=== PATIENT | female | born 1945 | race Caucasian/White ===

== ENCOUNTER 2017-12-25 11:56 | Inpatient (IN) | payer OTHER ==
[~2017-12-25] VITALS: Ht 157.5 cm; Wt 43.5 kg
--- NOTE | ~2017-12-25 | HC ---
[facility] [place] [address] CONSULTATION Name: CARMELITA ANDERSON Ag Room #: 448-P [facility] IN ..#: [id number] Admission: 12/25/17 Attend Phys: Rajiv Blakely MD Discharge: 12/28/17 Date of : 47 Report #: [id number] THIS REPORT FOR: //name// CC: FAM unknown Rajiv Blakely DATE OF SERVICE: 12/25/2017 REASON FOR CONSULTATION: Painful area of left lower leg. HISTORY OF PRESENT ILLNESS: The patient is an unfortunate 72-year-old woman suffering from metastatic lung cancer with brain metastases who is currently undergoing chemotherapy. She has required blood transfusion. She is known to be immunocompromised. Most recent hemogram showed white blood count of 3.9, platelet count of 63. The patient has noticed a painful, tender area with some redness of her left lateral lower leg. There may have been some slight drainage from this. The patient was complaining of pain, has not been walking on it. She is admitted to the hospital, wound care was consulted for evaluation of wound of her left lower leg. Medical problems include metastatic lung cancer, acute kidney injury, pancytopenia due to chemotherapy immunocompromised, malnutrition. ALLERGIES: CODEINE. MEDICATIONS: Include Lomotil, Nexium, folic acid, Neurontin, Advil, Remeron, Zofran, Percocet, Compazine. PAST SURGICAL HISTORY: Cholecystectomy, excision of breast cyst, cervical disk surgery, radiation to hips and head from lung cancer metastases, tonsillectomy and adenoidectomy. SOCIAL HISTORY: Former smoker for 50 years. No smoking now. PHYSICAL EXAMINATION: GENERAL: Shows an alert, pleasant, conversant, chronically ill-appearing, thin, malnourished-appearing elderly woman who is pleasant and conversant. HEENT: Mucous membranes are moist. NECK: Supple. LUNGS: Respirations are unlabored. ABDOMEN: Soft. EXTREMITIES: Shows a 2.5 cm area of the left lower lateral leg with a purplish discoloration, slightly raised, slightly tender without erythema. There is no drainage and no open skin wound. Palpation shows slightly raised area to be relatively soft, only mildly indurated. Clinically exam is most consistent with a contusion of the left lower leg with subcutaneous hematoma with pain from some pressure of the hematoma under the skin. [address] [address] CONSULTATION Name: CARMELITA ANDERSON Room #: 448-P [facility]#: [id number] Admission: 12/25/17 Attend Phys: Rajiv Blakely MD Discharge: 12/28/17 Date of : 47 Report #: [id number] IMPRESSION: 1. Metastatic lung cancer, currently undergoing chemotherapy. 2. Brain metastases from lung cancer. 3. Pancytopenia secondary to chemotherapy. 4. Clinical contusion with hematoma, left lower leg which seems to be stable. It does not seem to be cellulitic or infected. Antibiotics may not be necessary. Based on the clinical appearance and findings on palpation of the lesion, I do not believe that incision and drainage or opening of the wound would be necessary or advisable. Would expect spontaneous resolution as the hematoma is absorbed. The patient may have had minor trauma leading to hematoma due to her thrombocytopenia, would protect this area with a Mepilex or foam pad, keep legs elevated, simply observe it. Wound care team will follow. <ELECTRONICALLY SIGNED> By: Rodney Miller MD 12/29/17 1204 1247 1728 Rodney Miller MD /nt
--- NOTE | ~2017-12-25 | HC ---
[facility] [place] [address] CONSULTATION Name: CARMELITA ANDERSON Ag Room #: 448-P [facility]..#: [id number] Admission: 12/25/17 Attend Phys: Rajiv Blakely MD Discharge: 12/28/17 Date of : 47 Report #: [id number] THIS REPORT FOR: //name// CC: FAM unknown Rajiv Blakely DATE OF SERVICE: 12/27/2017 REASON FOR CONSULTATION: Pancytopenia, lung cancer. REQUESTING PHYSICIAN: Dr. Blakely. HISTORY OF PRESENT ILLNESS: The patient is a pleasant 72-year-old woman well known to my partner, Dr. Raines. She is undergoing chemotherapy for stage IV lung cancer. She is receiving chemotherapy with carboplatin and Taxol. She states she received 6 cycles of chemotherapy. Last cycle of chemotherapy was 3 weeks ago. She discontinued chemotherapy because of stable disease and increasing toxicity. She is admitted to the hospital now with cellulitis on her right lower extremity. She has pancytopenia, persistent anemia. Hematology/oncology consult is requested. She has complaints of weakness, shortness of breath on exertion. Does not have fever or chills. PAST MEDICAL HISTORY: Significant for metastatic stage IV non-small cell lung cancer, history of anemia, transfusions in the past, cellulitis. SOCIAL HISTORY: Former smoker. PHYSICAL EXAMINATION: GENERAL: Reveals thin elderly woman, not in acute distress. VITAL SIGNS: Blood pressure 134/75, heart rate is 64, temperature 97.2, respirations 20. HEENT: Does not reveal thrush. HEART: Normal S1, S2. LUNGS: Clear. ABDOMEN: Soft. No organomegaly. LOWER EXTREMITIES: No edema. Left lower extremity exam reveals bandage over the wound. No significant erythema. LABORATORY DATA: White count 4.0, hemoglobin 6.7, platelets 63, absolute neutrophil count 3.4. ASSESSMENT AND PLAN: 1. Non-small cell lung cancer. Last chemotherapy was 3 weeks ago. She completed chemotherapy for now as per the patient. 2. Anemia secondary to chemotherapy. She has required transfusions in the past. She is quite symptomatic. Because of her underlying disease and [facility] [address] [place] [address] CONSULTATION Name: CARMELITA ANDERSON Ag Room #: 448-P [facility]#: [id number] Admission: 12/25/17 Attend Phys: Rajiv Blakely MD Discharge: 12/28/17 Date of : 47 Report #: [id number] chemotherapy, she will require transfusion. I am planning to order 2 units of packed red blood cells. 3. Thrombocytopenia secondary to chemotherapy. Continue to monitor. No transfusion is needed. Thank you very much for allowing me to participate in the care of this patient. We will continue to follow the patient while the patient is in the hospital. <ELECTRONICALLY SIGNED> By: Jared Bean MD 01/04/18 1606 1023 2309 Jared Bean MD /terrence
[~2017-12-25 11:56] MED LIST: COMPAZINE10 MG PO; FLEXERIL PO; FOLIC ACID1 MG PO; GABAPENTIN 100100 MG PO; IBUPROFEN 200200 M1 PO; LOMOTIL TABLET1 EACH PO; NEURONTIN600 MG PO; NEXIUM40 MG PO; ONDANSETRON HCL4 M2 PO; PERCOCET PO; REMERON15 MG PO; TRAMADOL 50 MG50 MG PO; VITAMIN D PO
[2017-12-25 13:25] LABS: HEMATOCRIT 21.1 % (37.0-47.0); HEMOGLOBIN 7.3 gm/dL (12.0-15.0); MCH 29.7 pg (26.0-34.0); MCHC 34.6 g/dL (28.0-37.0); MCV 85.9 fL (80.0-100.0); RBC 2.46 mil/uL (4.20-5.00); RDW 20.2 % (10.5-14.5); WBC 3.9 thou/uL (4.0-11.0)
[2017-12-25 13:32] VITALS: BP 124/72
[2017-12-25 13:33] LABS: CALCIUM 7.4 mg/dL (8.5-10.1); CREATININE 1.8 mg/dL (0.6-1.0); POTASSIUM 3.1 mmol/L (3.5-5.1)
[2017-12-25 13:58] LABS: ABSOLUTE NEUTROPHILS 2.9 thou/uL (1.4-8.2); ANISOCYTOSIS 1+; PLATELET COUNT 70 thou/uL (150-400)
[2017-12-25 14:57] VITALS: BP 124/72
[2017-12-25 16:13] VITALS: BP 151/75
[2017-12-25 22:33] VITALS: BP 115/67
[2017-12-26 04:31] LABS: HEMOGLOBIN 6.5 gm/dL (12.0-15.0); MCH 30.6 pg (26.0-34.0); MCHC 35.5 g/dL (28.0-37.0); MCV 86.1 fL (80.0-100.0); RBC 2.14 mil/uL (4.20-5.00); RDW 20.3 % (10.5-14.5); WBC 3.9 thou/uL (4.0-11.0)
[2017-12-26 04:40] LABS: CALCIUM 7.1 mg/dL (8.5-10.1); CREATININE 1.7 mg/dL (0.6-1.0); POTASSIUM 3.5 mmol/L (3.5-5.1)
[2017-12-26 04:48] LABS: HEMATOCRIT 18.4 % (37.0-47.0)
[2017-12-26 06:40] VITALS: BP 132/71
[2017-12-26 08:20] VITALS: BP 130/78
[2017-12-26 10:28] LABS: HEMATOCRIT 20.1 % (37.0-47.0); MCH 30.2 pg (26.0-34.0); MCHC 34.7 g/dL (28.0-37.0); MCV 86.8 fL (80.0-100.0); RBC 2.32 mil/uL (4.20-5.00); RDW 19.6 % (10.5-14.5); WBC 4.1 thou/uL (4.0-11.0)
[2017-12-26 16:42] VITALS: BP 145/72
[2017-12-26 20:11] VITALS: BP 146/71
[2017-12-27 04:31] VITALS: BP 127/72
[2017-12-27 06:18] LABS: RBC 2.19 mil/uL (4.20-5.00)
[2017-12-27 06:20] LABS: HEMOGLOBIN 6.7 gm/dL (12.0-15.0); MCH 30.4 pg (26.0-34.0); MCHC 35.2 g/dL (28.0-37.0); MCV 86.4 fL (80.0-100.0); PLATELET COUNT 63 thou/uL (150-400); RDW 20.1 % (10.5-14.5); WBC 4.2 thou/uL (4.0-11.0)
[2017-12-27 06:24] LABS: CALCIUM 7.5 mg/dL (8.5-10.1); CREATININE 1.7 mg/dL (0.6-1.0); MAGNESIUM 1.4 mg/dL (1.8-2.4); POTASSIUM 3.4 mmol/L (3.5-5.1)
[2017-12-27 06:27] LABS: HEMATOCRIT 18.9 % (37.0-47.0)
[2017-12-27 06:44] LABS: ABSOLUTE NEUTROPHILS 3.4 thou/uL (1.4-8.2); ANISOCYTOSIS 1+; POLYCHROMASIA OCCASIONAL
[2017-12-27 07:35] VITALS: BP 134/75
[2017-12-27 15:37] VITALS: BP 141/88; BP 148/91
[2017-12-27 18:12] VITALS: BP 148/91
[2017-12-27 19:00] VITALS: BP 141/88; BP 151/86; BP 158/100
[2017-12-27 21:18] VITALS: BP 164/92
[2017-12-28 04:11] VITALS: BP 159/81
[2017-12-28 07:17] LABS: ABSOLUTE NEUTROPHILS 4.8 thou/uL (1.4-8.2); BASOPHILS 0.7 % (0.0-2.0); EOSINOPHILS 1.4 % (0.0-3.0); HEMATOCRIT 31.2 % (37.0-47.0); LYMPHOCYTES 7.5 % (24.0-44.0); MCH 30.1 pg (26.0-34.0); MCHC 34.7 g/dL (28.0-37.0); MCV 86.7 fL (80.0-100.0); MONOCYTES 10.5 % (1.0-8.0); PLATELET COUNT 65 thou/uL (150-400); POLYS 79.9 % (36.0-66.0); RDW 17.5 % (10.5-14.5)
[2017-12-28 07:20] LABS: HEMOGLOBIN 10.8 gm/dL (12.0-15.0)
[2017-12-28 07:25] LABS: CALCIUM 7.8 mg/dL (8.5-10.1); CREATININE 1.8 mg/dL (0.6-1.0); MAGNESIUM 1.7 mg/dL (1.8-2.4); POTASSIUM 3.1 mmol/L (3.5-5.1)
[2017-12-28 08:00] VITALS: BP 166/75
[2017-12-28 09:45] VITALS: BP 166/75
[2017-12-28] MEDS ORDERED: AUGMENTIN 500-1 EACH PO (12:58)
[2017-12-28 13:26] VITALS: BP 166/75
[2017-12-28 16:00] VITALS: BP 147/77
== END 2017-12-28 18:24 | disposition home or self-care (01) | DRG 602 ==
LOC: ER 11:56 → 4S 14:22 → EROBS 14:22 → 4S 15:28 → ENTRNSPT 12-28 17:37 → 4S 12-28 18:24
PROVIDERS: Hospitalist; Internal Medicine; Nurse Practitioner Acute Care; Nurse Practitioner Family
PROC: 30233N1 Transfusion of Nonautologous Red Blood Cells into Peripheral Vein, Percutaneous Approach (ICD-10-PCS; principal; 2017-12-27)
DX: L03.115 Cellulitis of right lower limb (principal); E43 Unspecified severe protein-calorie malnutrition; D61.810 Antineoplastic chemotherapy induced pancytopenia; C34.90 Malignant neoplasm of unspecified part of unspecified bronchus or lung; C79.31 Secondary malignant neoplasm of brain; Z68.1 Body mass index [BMI] 19.9 or less, adult; G62.9 Polyneuropathy, unspecified; K21.9 Gastro-esophageal reflux disease without esophagitis; E87.6 Hypokalemia; L02.415 Cutaneous abscess of right lower limb; D64.81 Anemia due to antineoplastic chemotherapy; S80.12XA Contusion of left lower leg, initial encounter; E83.42 Hypomagnesemia; W18.39XA Other fall on same level, initial encounter; Z88.5 Allergy status to narcotic agent; Z90.49 Acquired absence of other specified parts of digestive tract; Z87.891 Personal history of nicotine dependence; Y93.89 Activity, other specified; Y92.098 Other place in other non-institutional residence as the place of occurrence of the external cause; Y99.8 Other external cause status
CPT/HCPCS: 10195

== ENCOUNTER 2018-01-10 11:53 | Inpatient (IN) | payer OTHER ==
[~2018-01-10] VITALS: Ht 167.6 cm; Wt 42.7 kg
--- NOTE | ~2018-01-10 | EKG ---
[place] [address] [address] [place] [address] ELECTROCARDIOGRAM REPORT Name: CARMELITA ANDERSON Room #: 214-P ADM IN M.R.#: [id number] Admission: 01/10/18 Attend Phys: Gabriel Worrell DO Discharge: Date of : 47 Report #: [id number] THIS REPORT FOR: //name// [facility] ED Test Date: 2018-01-10 Test Time: 12:14:33 Pat Name: CARMELITA ANDERSON Department: Room: 214 Gender: F Sales Intern: Ashleigh GRANDE : 1945 Requested By: Lizbet Guajardo Order Number: [id number] MD: Matthew Sullivan Measurements Intervals [place] Rate: 79 P: 80 IA: 142 QRS: 88 QRSD: 138 T: -1 QT: 463 QTc: 531 Interpretive Statements Sinus rhythm IVCD, consider atypical RBBB No previous ECG available for comparison Electronically Signed On 01-11-2018 7:37:05 RELATIONS LIAISON by Matthew Sullivan [email or web address] <ELECTRONICALLY SIGNED> By: Matthew Sullivan MD, [facility] 01/11/18 0737 1214 13 Matthew Sullivan MD, FACC /EPI
--- NOTE | ~2018-01-10 | HC ---
[facility] [place] [address] CONSULTATION Name: CARMELITA ANDERSON Ag Room #: 214-P [facility] IN M.R.#: [id number] Admission: 01/10/18 Attend Phys: Gabriel Worrell DO Discharge: 01/13/18 Date of : 47 Report #: [id number] THIS REPORT FOR: //name// CC: FAM unknown Gabriel Worrell DO REQUESTING PHYSICIAN: Gabriel Worrell DO. CHIEF COMPLAINT: Acute hypoxic respiratory failure. HISTORY OF PRESENT ILLNESS: The patient is a 72-year-old female with a history of metastatic lung cancer to bone and brain, who had recently been undergoing chemotherapy and had an evaluation at home for palliative care services. At that time of that evaluation, the nurse noted the patient to have vomitus and the patient had a likely aspiration episode. EMS was called. Suctioning was commenced. She was 79% on nonrebreather at that time. The patient was brought into the Emergency Department on 01/10/2018. BiPAP was initiated. The patient is a DNR at this point in time. Unfortunately, the patient appears to have a rather poor prognosis, has been evaluated by Dr. Washington, the patient's regional loss prevention manager since arrival. Additionally, the family had expressed interest in going to hospice house if the patient was able to be stabilized. The patient is currently nonresponsive to my questioning or to commands. The patient's family including and daughter are present at today's interview. PAST MEDICAL HISTORY: Significant for metastatic lung cancer, diagnosed 01/2017, history of breast cancer in remission, history of keratitis of unknown origin. SURGICAL HISTORY: Known history of cholecystectomy, bilateral cataracts, tonsillectomy, adenoidectomy. SOCIAL HISTORY: She has a past tobacco use history, but she has quit over 1 year prior, and daughter are present today with interview. She is currently DNR status. MEDICATIONS AT HOME: She was on Lomotil p.r.n., vitamin D 50,000 units weekly, Nexium 40 mg daily, folic acid 1 mg daily, gabapentin 600 mg at bedtime, mirtazapine 30 mg at bedtime and Zofran 8 mg p.r.n. ALLERGIES: CODEINE. FAMILY HISTORY: Noncontributory. REVIEW OF SYSTEMS: Unable to obtain due to medical condition. PHYSICAL EXAMINATION: Includes: [facility] [address] [place] [address] CONSULTATION Name: CARMELITA ANDERSON Room #: 214-P [facility] IN M.R.#: [id number] Admission: 01/10/18 Attend Phys: Gabriel Worrell DO Discharge: 01/13/18 Date of : 47 Report #: [id number] VITAL SIGNS: Today 36.6 temperature, pulse 59, respirations 18, blood pressure 153/83, 100% on mask currently. GENERAL: Appears to be in no acute distress. She is not responsive to questions. She does have some verbal response to touch stimuli; however, this is no sensible words at this time. HEENT: Appears to have flattened nasolabial folds. CARDIOVASCULAR: She is regular rate and rhythm without apparent murmur. LUNGS: Diffuse rales in bases. Upper lobes appear to have some clearing. ABDOMEN: She does not have any grimacing to apparent palpation of her abdomen, diminished bowel sounds are noted. No apparent distention. EXTREMITIES: No edema noted. LABORATORY DATA: Include hemoglobin 9.5, platelets 103, creatinine 1.5. She had previously been below on her potassium from 2.5, now she is at 3.1. ASSESSMENT AND PLAN: 1. Acute hypoxic respiratory failure. At this time, the patient is on face shield FiO2 50%. Discussed weaning oxygen down to nasal cannula as tolerated with family. Family is amenable to this. Discussed this would be in an effort to see if the patient will remain stable enough to discharge to hospice to the care facility or to pursue palliative care on an inpatient basis, which they are amenable to. They understand the patient's condition is poor and that she will either in the hospital setting or on a hospice setting without significant aggressive treatment or even with significant aggressive treatment. They are amenable to hospice and were prior to admission to the hospital, although this acute episode of aspiration prompted the admission. They are continuing the Do Not Resuscitate status. I did discuss other medications used such as morphine and Ativan for air hunger pain and anxiety. Also, discussed use of medications for secretions, although their effectiveness has not been significant and discussed that secretions are normal part of the dying process without significant distress to the patient. Did discuss this also with nurse outreach case manager and also with nursing staff and they left message with Dr. Washington with regards to my management plan at this time. If the patient is stabilized overnight with decreases in oxygen to regular nasal cannula, possibly could be discharged to hospice house tomorrow. 2. Metastatic lung cancer. Again at this time given her overall condition unlikely to have significant recovery, I had discussed this with the patient's family, they would already come to this decision independent of my discussion today. 3. Aspiration pneumonia. Again, this is likely the cause of her hypoxic respiratory failure, possibility of recurrence is high given her overall medical condition; however, I did discuss antibiotics at this time. We made a decision to reduce and remove antibiotics at this current point in time. 4. Acute kidney injury, again contributing to overall condition, although mild. At this point in time, we are stopping IV fluids at family request. 5. I will continue to follow with this patient. I spent approximately 35 [facility] [address] [place] [address] CONSULTATION Name: CARMELITA ANDERSON Room #: 214-P [facility] IN .R.#: [id number] Admission: 01/10/18 Attend Phys: Gabriel Worrell DO Discharge: 01/13/18 Date of : 47 Report #: [id number] minutes in advanced care planning discussion today with family, nurse outreach case manager and nursing staff. We will continue to follow. Thank you very much for the consultation. <ELECTRONICALLY SIGNED> By: River Castellano DO 02/12/18 1323 1316 1945 River Castellano DO /nt
[~2018-01-10 11:53] MED LIST changes: +AUGMENTIN 500-1 EACH PO
[2018-01-10 11:54] VITALS: BP 144/89
[2018-01-10 13:06] LABS: BE(vivo) -12.3 mmol/L (-2 to +3); HCO3 12.2 mmol/L (22.0-26.0); PO2 357.5 mmHg (80.0-100.0); pH 7.307 (7.360-7.450); sO2 99.7 % (92.0-98.0)
[2018-01-10 13:21] LABS: ABSOLUTE NEUTROPHILS 7.7 thou/uL (1.4-8.2); BASOPHILS 0.9 % (0.0-2.0); HEMATOCRIT 34.2 % (37.0-47.0); HEMOGLOBIN 11.8 gm/dL (12.0-15.0); LYMPHOCYTES 4.7 % (24.0-44.0); MCHC 34.5 g/dL (28.0-37.0); MCV 86.9 fL (80.0-100.0); MONOCYTES 6.6 % (1.0-8.0); PLATELET COUNT 133 thou/uL (150-400); POLYS 87.8 % (36.0-66.0); RBC 3.94 mil/uL (4.20-5.00); RDW 20.5 % (10.5-14.5); WBC 8.8 thou/uL (4.0-11.0)
[2018-01-10 13:29] LABS: CALCIUM 8.1 mg/dL (8.5-10.1); CREATININE 1.7 mg/dL (0.6-1.0)
[2018-01-10 13:31] LABS: POTASSIUM 2.5 mmol/L (3.5-5.1)
[2018-01-10 13:56] VITALS: BP 144/89
[2018-01-10 15:10] VITALS: BP 146/78
[2018-01-10 16:58] VITALS: BP 148/91
[2018-01-10 21:06] VITALS: BP 135/79
[2018-01-10 21:14] LABS: MAGNESIUM 2.1 mg/dL (1.8-2.4)
[2018-01-10 21:24] LABS: POTASSIUM 2.9 mmol/L (3.5-5.1)
[2018-01-11 03:52] VITALS: BP 137/80
[2018-01-11 04:35] LABS: BASOPHILS 0.7 % (0.0-2.0); EOSINOPHILS 0.3 % (0.0-3.0); HEMATOCRIT 26.6 % (37.0-47.0); LYMPHOCYTES 4.7 % (24.0-44.0); MCV 86.3 fL (80.0-100.0); MONOCYTES 8.2 % (1.0-8.0); PLATELET COUNT 103 thou/uL (150-400); POLYS 86.1 % (36.0-66.0); RBC 3.08 mil/uL (4.20-5.00); RDW 20.5 % (10.5-14.5); WBC 8.2 thou/uL (4.0-11.0)
[2018-01-11 04:36] LABS: HEMOGLOBIN 9.5 gm/dL (12.0-15.0)
[2018-01-11 04:43] LABS: CALCIUM 7.4 mg/dL (8.5-10.1); CREATININE 1.5 mg/dL (0.6-1.0); POTASSIUM 3.1 mmol/L (3.5-5.1)
[2018-01-11 07:27] VITALS: BP 123/72
[2018-01-11 10:59] VITALS: BP 153/84
[2018-01-11 15:33] VITALS: BP 151/91
[2018-01-11 19:21] VITALS: BP 132/73
[2018-01-12 00:11] VITALS: BP 146/77
[2018-01-12 03:40] VITALS: BP 164/78
[2018-01-12 07:45] VITALS: BP 155/69
[2018-01-12 11:37] VITALS: BP 136/69
[2018-01-12 15:05] VITALS: BP 157/83
[2018-01-12 20:30] VITALS: BP 153/72
[2018-01-13 08:10] VITALS: BP 128/74
[2018-01-13 11:15] VITALS: BP 118/65
== END 2018-01-13 11:55 | disposition hospice, inpatient (51) | DRG 180 ==
LOC: ER 11:53 → EROBS 13:30 → 2N 13:30
PROVIDERS: Emergency Medicine; Family Medicine
PROC: 5A09357 Assistance with Respiratory Ventilation, Less than 24 Consecutive Hours, Continuous Positive Airway Pressure (ICD-10-PCS; principal; 2018-01-10)
DX: C34.90 Malignant neoplasm of unspecified part of unspecified bronchus or lung (principal); J69.0 Pneumonitis due to inhalation of food and vomit; J96.21 Acute and chronic respiratory failure with hypoxia; R64 Cachexia; N17.9 Acute kidney failure, unspecified; Z68.1 Body mass index [BMI] 19.9 or less, adult; E87.6 Hypokalemia; E83.42 Hypomagnesemia; Z66 Do not resuscitate; J44.9 Chronic obstructive pulmonary disease, unspecified; R56.9 Unspecified convulsions; Z85.3 Personal history of malignant neoplasm of breast; Z79.899 Other long term (current) drug therapy; Z88.5 Allergy status to narcotic agent; Z87.891 Personal history of nicotine dependence; Z98.42 Cataract extraction status, left eye; Z98.41 Cataract extraction status, right eye; Z90.49 Acquired absence of other specified parts of digestive tract
CPT/HCPCS: 10081